=== PATIENT | male | born 1950 | race Hispanic/Latino ===

== ENCOUNTER 2018-10-27 20:15 | Emergency (ER) | payer MEDICARE, MEDICAID | END 2018-10-27 23:55 | disposition home or self-care (01) | LOC: ERS 20:15 | DX: E16.2 Hypoglycemia, unspecified (principal); I10 Essential (primary) hypertension; Z79.4 Long term (current) use of insulin; Z79.899 Other long term (current) drug therapy | CPT/HCPCS: 36416; 99284 ==